=== PATIENT | male | born 1975 | race Caucasian/White ===

== ENCOUNTER 2023-06-08 16:44 | Emergency (ER) | payer BC, SELFPAY ==
[2023-06-08 17:14] VITALS: BP 119/71; PULSE 66; RESP 18; TEMP 36.8; O2SAT 96
--- NOTE | 2023-06-08 17:20 | ECG_ITS ---
Test Reason : BEE STING Blood Pressure : / mmHG Vent. Rate : 071 BPM Atrial Rate : 071 BPM P-R Int : 170 ms QRS Dur : 102 ms QT Int : 400 ms P-R-T Axes : 073 054 053 degrees QTc Int : 434 ms Normal sinus rhythm Normal ECG No previous ECGs available Referred By: Generic ED Physician Electronically Signed By:MIA BARONE MD
[2023-06-08 17:22] VITALS: BP 146/78; PULSE 80; O2SAT 100; BMI 27.7
--- NOTE | 2023-06-08 18:01 | ED_ITS ---
HPI - Allergic Reaction General Chief complaint: Allergic Reaction Stated complaint: s/p bee sting, per ems Time Seen by Provider: 06/08/23 17:48 Source: patient Mode of arrival: EMS Limitations: no limitations History of Present Illness HPI narrative: Patient comes emergency room complaining of an allergic reaction to a bee sting. Patient states that he was cutting the grass, thinks he stepped into a nest of either BC or yellow jackets. Patient got stung once. Patient states that a few minutes later, he started having a burning sensation in his chest, chest tightness, feeling very hot. States that he did not have any trouble breathing or oropharyngeal swelling. Patient has been stung before but never had an allergic reaction. Also, patient complaining of a follicular rash all over his body. Patient's has the same. Patient states that he has been using the bathtub almost every day hoping that the bath would help his rash but since it is getting worse. Related Data Previous Rx's Medication Instructions Recorded doxycycline hyclate 100 mg capsule 100 mg PO BID #13 caps 06/08/23 epinephrine 0.3 mg/0.3 mL 0.3 mg (0.3 mL) IM Q4H PRN 06/08/23 injection, auto-injector (EpiPen) anaphylaxis #2 ea Allergies Allergy/AdvReac Type Severity Reaction Status Date / Time bee pollen [bee stings] Allergy Fainting Verified 06/08/23 17:21 Penicillins Allergy Unknown Verified 06/08/23 17:21 Review of Systems Review of Systems: Constitutional : No Weight loss, No Fever, No Chills, No Night Sweats, No Fatigue, No Malaise ENT/Mouth : No Hearing loss, No Ear Pain, No Nasal Congestion, No Sinus Pain, No Hoarseness, No sore throat, No Rhinorrhea, No Swallowing Difficulty Eyes: No Eye Pain, No Swelling, No Redness, No Foreign Body, No Discharge, No Vision Changes Cardiovascular : By chest tightness, No Chest Pain, No SOB, No Dyspnea on Exertion, No Orthopnea, No Edema, No Palpitations Respiratory : No Cough, No Sputum, No Wheezing, No Smoke Exposure, No Dyspnea Gastrointestinal : No Nausea, No Vomiting, No Diarrhea, No Constipation, No abdominal Pain, No Hematochezia, No Melena Genitourinary : no irregular bleeding, No Dysuria, No Urinary Frequency, No Hematuria, No Urinary Incontinence, No Urgency, No Flank Pain, No Urinary Flow Changes, No Hesitancy Musculoskeletal : No joint pain, No Myalgias, No Joint Swelling Skin : Complaining of a follicular rash throughout the body after using the ba thtub multiple times. Also, complaining of a burning sensation in the skin around the chest Neuro : No Weakness, No Numbness, No Paresthesias, No Loss of Consciousness, No Dizziness, No Headache Psych : No Anxiety/Panic, No Depression, No SI/HI/AH/VH, No Social Issues, Heme/Lymph: No Bruising, No Bleeding,No Lymphadenopathy Endocrine : No Polyuria, No Polydipsia, No Temperature Intolerance [facility] Social History Social History Advance Directives: No Advance Directives Information Provided: Yes Physical Exam ED Vital Signs: Vital Signs - 24 hr 06/08/23 17:14 Temperature 98.3 F Pulse Rate 66 Respiratory Rate 18 Blood Pressure 119/71 Pulse Oximetry 96 Oxygen Delivery Method Room Air BMI result Body Mass Index 27.7 Const Other: Appearance: Alert. Oriented X3. No acute distress. Eyes: Pupils equal, round and reactive to light. ENT: Pharynx normal. Neck: Normal inspection. Neck supple. No lymph nodes noted. No crepitus CVS: Normal heart rate and rhythm. Pulses normal. Normal S1 and S2 Respiratory: No respiratory distress. Breath sounds normal. No Wheezing. No rales Abdomen: Soft and nontender. No rigidity. No distention. Skin: Skin warm and dry. Normal skin color. Diffuse folliculitis in all extremities and torso and back Extremities: No lower extremity edema. No Lacerations. No Rash Neuro: Oriented X 3. No motor deficit. No sensory deficit. Moving all extremities. No slurred speech. CN 2 through 12 grossly intact Psych: calm, cooperative, normal affect Course Course Course Narrative: -patient was given IV fluids by EMS. -here in the emergency room, patient getting Benadryl, Pepcid and Solu-Medrol -patient has folliculitis. Patient has been using the bathtub continuously. Patient given the 1st dose of doxycycline in the emergency room. Medical Decision Making Medical Decision Making MDM Narrative: -patient has erythematous skin around his chest. No edema. Admission being considered. Medications for allergic reaction being given at this time -discussed with the patient that we will send an EpiPen to the patient's pharmacy. Patient was instructed how to use it. However, also patient will ask his pharmacist to get thorough instructions on the use of EpiPen. Instructed patient to get comfortable with its usage and not wait until an emergency happens. Also, patient instructed to come to the emergency room if he does use his EpiPen. -after the medication, patient's symptoms improved, no respiratory distress, no chest tightness or chest pain no injury DM a Differential Diagnosis Differential Diagnoses: The differential diagnosis associated with the presentation includes (Anaphylaxis, allergic reaction, folliculitis) Admission/Observation Consideration of admission/observation: Escalation of care including admission/observation considered Critical Care Time Critical Care Time Critical Care Time: Yes Total Critical Care Time: 45 Attestation: I have personally provided critical care time. Time includes review of lab data, radiology results, discussion with consultants, and monitoring for potential decompensation. Intervention performed as documented. Discharge Plan Discharge Clinical Impression: Allergic reaction to bee sting, Folliculitis Patient Disposition: Home, Self-Care Instructions: Insect Bite or Sting (ED), Anaphylaxis (ED), Folliculitis (ED) Additional Instructions: Please follow-up with your primary care physician tomorrow. If you have any worsening or new symptoms, please return to the emergency room or call 911 Prescriptions: New epinephrine [EpiPen] 0.3 mg/0.3 mL auto-injector 0.3 mg IM Q4H PRN (Reason: anaphylaxis) Qty: 2 0RF doxycycline hyclate 100 mg capsule 100 mg PO BID Qty: 13 0RF
== END 2023-06-08 19:44 | disposition home or self-care (01) ==
PROVIDERS: Emergency Provider Emergency Medicine
DX: T63.441A Toxic effect of venom of bees, accidental (unintentional), initial encounter (principal); L73.9 Follicular disorder, unspecified; L50.0 Allergic urticaria; Y92.9 Unspecified place or not applicable
CPT/HCPCS: 93005; 99283; 99284

== ENCOUNTER → 2023-06-08 17:20 | Outpatient (BNV) | payer BC, SELFPAY | PROVIDERS: Emergency Provider Emergency Medicine; Visit Provider Internal Medicine Cardiovascular Disease | DX: R07.9 Chest pain, unspecified (principal) | CPT/HCPCS: 93010 ==

== ENCOUNTER 2025-06-05 19:00 | Emergency (ER) | payer BC, SELFPAY ==
--- NOTE | 2025-06-05 | ECG_ITS ---
Test Reason : ALLERGIC REACTION Blood Pressure : */* mmHG Vent. Rate : 85 BPM Atrial Rate : 85 BPM P-R Int : 162 ms QRS Dur : 100 ms QT Int : 378 ms P-R-T Axes : 74 52 50 degrees QTcB Int : 449 ms Normal sinus rhythm Normal ECG When compared with ECG of 08-Jun-2023 17:17, No significant change was found Referred By: Generic ED Physician Electronically Signed By: Pedro Ybarra
[2025-06-05 19:03] VITALS: BP 114/73; BP 143/73; PULSE 90; RESP 19; TEMP 36.8; O2SAT 94; O2SAT 95; BMI 28.9
[2025-06-05 19:25] LABS: MANUAL DIFF FLAG NO
[2025-06-05 19:31] LABS: Hematocrit 37.8 % (42.0-52.0); Hemoglobin 13.3 g/dl (14.0-18.0); Imm Gran Abs Auto 0.02 X10*3/uL (0.00-0.03); Imm Gran Pct Auto 0.4 % (0.0-0.4); Lymphocytes Absolute Auto 2.0 X10*3/uL (1.2-4.9); Mean Corpuscular HGB Conc 35.2 g/dl (31.0-36.0); Mean Corpuscular Hemoglobin 29.6 pg (27.0-33.0); Mean Corpuscular Volume 84.0 fL (80.0-98.0); NRBC Abs Auto 0.000 X10*3/uL (0.0-0.012); NRBC Pct Auto 0.0 /100WBC (0.0-0.2); Platelet Count 226 X10*3/uL (160-400); Red Blood Count 4.50 X10*6/uL (4.60-5.80); White Blood Count 5.1 X10*3/uL (4.8-10.8)
--- NOTE | 2025-06-05 19:35 | ED.ALLEREA ---
HPI - Allergic Reaction General Chief complaint: Allergic Reaction Stated complaint: allergic reaction to bee sting Time Seen by Provider: 06/05/25 19:24 History of Present Illness HPI narrative: Patient is a 49-year-old male was at home got stung by a bee multiple times to the hand into the lower extremity. Patient felt very short of breath afterwards feels somewhat odd. Elected to use the EpiPen. After the EpiPen symptoms seems to have gotten better on arrival symptom has basically resolved. 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 From home. No chest pain no diaphoresis no history of ACS. Related Data Previous Rx's ?Medication ?Instructions ?Recorded doxycycline hyclate 100 mg capsule 100 mg PO BID #13 caps 06/08/23 epinephrine 0.3 mg/0.3 mL 0.3 mg (0.3 mL) IM Q4H PRN 06/08/23 injection, auto-injector (EpiPen) anaphylaxis #2 ea diphenhydramine HCl 25 mg capsule 25 mg PO Q8H 5 days #15 caps 06/05/25 (Benadryl) epinephrine 0.3 mg/0.3 mL 0.3 mg (0.3 mL) IM ONCE PRN 06/05/25 injection, auto-injector (EpiPen) extreme reaction #1 ea famotidine 20 mg tablet (Pepcid) 20 mg PO BID 5 days #10 tabs 06/05/25 prednisone 20 mg tablet 40 mg (2 x 20 mg) PO DAILY #10 tabs 06/05/25 Allergies Allergy/AdvReac Type Severity Reaction Status Date / Time bee pollen (bee stings) Allergy Fainting Verified 06/05/25 19:08 Penicillins Allergy Unknown Verified 06/05/25 19:08 Review of Systems Review of Systems: Positive bee sting Yes all other systems are reviewed and are negative PMFSH Past Medical History Attestation statement: The following information was validated with the patient. Social History Social History Smoked in Last 30 Days: No Use of substances other than those prescribed or required for medical reasons: No Advance Directives: No Advance Directives Information Provided: Yes Physical Exam ED Vital Signs: Vital Signs - 24 hr 06/05/25 19:03 Temperature 98.3 F Pulse Rate 90 Respiratory Rate 19 Blood Pressure 143/73 H Pulse Oximetry 95 Oxygen Delivery Method Room Air BMI result Body Mass Index 28.9 Appearance: Alert. Oriented X3. No acute distress. Eyes: Pupils equal, round and reactive to light. ENT: Pharynx normal. Neck: Normal inspection. Neck supple. No lymph nodes noted. No crepitus CVS: Normal heart rate and rhythm. Pulses normal. Normal S1 and S2 Respiratory: No respiratory distress. Breath sounds normal. No Wheezing. No rales Abdomen: Soft and nontender. No rigidity. No distention. good BS x4 Skin: Skin warm and dry. Normal skin color. Normal skin turgor. Extremities: No lower extremity edema. Neurovascular intact to all extremities. No Lacerations. No Rash Neuro: Oriented X 3. No motor deficit. No sensory deficit. Moving all extermities. No slurred speech Medications Administered Discontinued Medications Generic Name Dose Route Start Last Admin Trade Name Freq PRN Reason Stop Dose Admin Diphenhydramine HCl 25 mg 06/05/25 19:34 06/05/25 19:42 Diphenhydramine Hcl 25 Mg Capsule PO 06/05/25 19:35 25 mg ONCE ONE Administration Famotidine 20 mg 06/05/25 19:34 06/05/25 19:42 Famotidine 20 Mg Tablet PO 06/05/25 19:35 20 mg ONCE ONE Administration Prednisone 40 mg 06/05/25 19:34 06/05/25 19:42 Prednisone 20 Mg Tablet PO 06/05/25 19:35 40 mg ONCE ONE Administration Medical Decision Making Medical Decision Making [facility] Narrative: Sinus heart rate is 80 [place] QRS QTC within normal limits is no acute ST segment elevation noted. Patient well-appearing. No acute distress. Lungs are clear. Vital signs are normal. Will monitor for 2 hours after epinephrine. Additional steroid, Benadryl, Pepcid was given Patient monitored in the emergency department. No acute distress no shortness of breath. Will discharge patient home close follow-up outpatient basis. In stable condition. Differential Diagnosis Differential Diagnoses: The differential diagnosis associated with the presentation includes Allergic reaction Lab Data [facility] Lab Attestation statement: I reviewed the patient's lab results. 06/05/25 19:20 06/05/25 19:20 Labs: Lab Results 06/05/25 Range/Units 19:20 WBC 5.1 (4.8-10.8) X10*3/uL RBC 4.50 L (4.60-5.80) X10*6/uL Hgb 13.3 L (14.0-18.0) g/dl Hct 37.8 L (42.0-52.0) % MCV 84.0 (80.0-98.0) fL MCH 29.6 (27.0-33.0) pg MCHC 35.2 (31.0-36.0) g/dl RDW 12.4 (11.0-16.0) % Plt Count 226 (160-400) X10*3/uL MPV 9.2 L (9.4-12.4) fL Immature Gran % (Auto) 0.4 (0.0-0.4) % Neut % (Auto) 51.7 (45-73) % Lymph % (Auto) 39.3 (20-40) % [place] % (Auto) 7.6 (2-11) % Eos % (Auto) 0.8 (0-4) % Baso % (Auto) 0.2 (0-2) % Lymph # (Auto) 2.0 (1.2-4.9) X10*3/uL [place] # (Auto) 0.4 (0.1-1.2) X10*3/uL Eos # (Auto) 0.0 (0.0-0.4) X10*3/uL Baso # (Auto) 0.0 (0.0-0.2) X10*3/uL Abs Immat Gran (auto) 0.02 (0.00-0.03) X10*3/uL Absolute Neuts (auto) 2.7 (2.0-8.3) x10*3/uL Absolute Nucleated RBC 0.000 (0.0-0.012) X10*3/uL Nucleated RBC % (auto) 0.0 (0.0-0.2) /100WBC Sodium 141 (135-145) mmol/L Potassium 3.6 (3.3-5.1) mmol/L Chloride 104 (96-108) mmol/L Carbon Dioxide 26 (22-29) mmol/L Anion Gap 15 (12-20) BUN 19 H (9-16) mg/dL Creatinine 1.10 (0.5-1.4) mg/dL Estim Creat Clear Calc 80.4 Estimated GFR > 60 Random Glucose 132 H (60-115) mg/dL Calcium 8.8 (8.4-10.2) mg/dL Discharge Plan Discharge Clinical Impression: Allergic reaction Patient Disposition: Home, Self-Care Instructions: General Allergic Reaction (ED) Prescriptions: New diphenhydramine HCl [Benadryl] 25 mg capsule 25 mg PO Q8H 5 Days Qty: 15 0RF prednisone 20 mg tablet 40 mg PO DAILY Qty: 10 0RF famotidine [Pepcid] 20 mg tablet 20 mg PO BID 5 Days Qty: 10 0RF epinephrine [EpiPen] 0.3 mg/0.3 mL auto-injector 0.3 mg IM ONCE PRN (Reason: extreme reaction) Qty: 1 0RF Rx Instructions: for 2 doses No Action epinephrine [EpiPen] 0.3 mg/0.3 mL auto-injector 0.3 mg IM Q4H PRN (Reason: anaphylaxis) Qty: 2 0RF doxycycline hyclate 100 mg capsule 100 mg PO BID Qty: 13 0RF Referrals: Physician,None [Primary Care Provider, Medical] - 1 week Print Language: Algerian
[2025-06-05 19:40] LABS: Anion Gap 15 (12-20); Blood Urea Nitrogen 19 mg/dL (9-16); Calcium 8.8 mg/dL (8.4-10.2); Carbon Dioxide 26 mmol/L (22-29); Chloride 104 mmol/L (96-108); Creatinine Clr Calc Pharmacy 80.4; Estimated Glomerular Filt Rate > 60; Potassium 3.6 mmol/L (3.3-5.1); Sodium 141 mmol/L (135-145)
[2025-06-05 20:45] VITALS: BP 121/76; PULSE 77; RESP 17; TEMP 36.8; O2SAT 97
== END 2025-06-05 20:46 | disposition home or self-care (01) ==
PROVIDERS: Emergency Provider Emergency Medicine Emergency Medical Services
DX: T63.441A Toxic effect of venom of bees, accidental (unintentional), initial encounter (principal); R06.02 Shortness of breath; Y92.9 Unspecified place or not applicable
CPT/HCPCS: 36415; 80048; 85025; 93005; 99283; 99284

== ENCOUNTER → 2025-06-05 19:07 | Outpatient (BNV) | payer BC, SELFPAY | PROVIDERS: Emergency Provider Emergency Medicine Emergency Medical Services; Visit Provider Internal Medicine Cardiovascular Disease | DX: T78.40XA Allergy, unspecified, initial encounter (principal) | CPT/HCPCS: 93010 ==